=== PATIENT | male | born 1970 | race Caucasian/White ===

== ENCOUNTER 2016-10-03 01:35 | Emergency (ER) | payer OTHER ==
[~2016-10-03] VITALS: Ht 177.8 cm; Wt 75.0 kg
[~2016-10-03 01:35] MED LIST: HYDR-3498 PO; NAPR-260 PO
[2016-10-03 01:38] VITALS: Ht 177.8 cm; Wt 75.0 kg
[2016-10-03] MEDS ORDERED: CEPH-443 PO (01:57)
[2016-10-03] MEDS ORDERED: BACTDS PO (01:57)
[2016-10-03] MEDS ORDERED: IBUP-1542 PO (01:57)
[2016-10-03] MEDS ORDERED: AZITHROMYCIN 250 MG TAB PO ONE (02:00)
[2016-10-03] MEDS ORDERED: CEFTRIAXONE 1 GM INJ IM ONE (02:00)
[2016-10-03 02:02] LABS: URINE BLOOD (Dip) POC Trace-intact (NEGATIVE)
--- NOTE | 2016-10-03 02:02 | ERD ---
ER Documentation Chief Complaint Date/Time DATE: 10/03/16 TIME: 02:00 Chief Complaint pus leaking from penile area HPI 46-year-old male presents to emergency department for complaints of pUS coming from the penile area. Patient is uncircumcised, noted some pus surrounding the penile area. Patient denies any dysuria. Patient's last sexual intercourse was 2 possible, does not have any new sexual partner. Patient denies any flank pain or abdominal pain. Patient denies any fever or chills. ROS All systems reviewed and are negative except as per history of present illness. Medications Home Meds Active Scripts Ibuprofen* (Motrin*) 600 Mg Tab, 600 MG PO Q6H Y for PAIN AND OR ELEVATED TEMP, #30 TAB Prov:JOSH NOLAN [employer]IC[employer] 10/03/16 Cephalexin* (Keflex*) 500 Mg Capsule, 500 MG PO QID for 10 Days, CAP Prov:JOSH NOLAN [employer] OFFICER 10/03/16 Sulfamethoxazole-Trimethoprim* (Bactrim* DS) 800-160 Mg Tab, 1 TAB PO BID for 10 Days, TAB Prov:JOSH NOLAN [employer] OFFICER 10/03/16 Naproxen* (Naprosyn*) 500 Mg Tablet, 500 MG PO BID Y for PAIN AND/OR INFLAMMATION, #20 TAB Prov:ANA POPE DO 10/30/15 Hydrocodone Bit-Acetaminophen* (Cheney*) 5-325 Mg Tab, 1 TAB PO Q6 Y for PAIN, # 10 TAB Prov:ANA POPE DO 10/30/15 Allergies Allergies: Coded Allergies: No Known Allergy (Unverified , 08/11/11) PMhx/Soc Medical and Surgical Hx: pt denies Medical Hx, pt denies Surgical Hx History of Surgery: No Anesthesia Reaction: No Hx Neurological Disorder: No Hx Respiratory Disorders: No Hx Cardiac Disorders: No Hx Psychiatric Problems: No Hx Miscellaneous Medical Probl: No Hx Alcohol Use: No Hx Substance Use: No Hx Tobacco Use: No FmHx Family History: No coronary disease, No diabetes, No other Physical Exam Vitals Vital Signs Date Time Temp Pulse Resp B/P Pulse Ox O2 Delivery O2 Flow Rate FiO2 10/03/16 01:38 97.7 96 20 125/74 100 Physical Exam GENERAL: The patient is well developed and appropriate for usual state of health, in no apparent distress. CHEST: Clear to auscultation bilaterally. There are no rales, wheezes or rhonchi. HEART: Regular rate and rhythm. No murmurs, clicks, rubs or gallops. No S3 or S4. ABDOMEN: Soft, nontender and nondistended. Good bowel sounds. No rebound or guarding. No gross peritonitis. No gross organomegaly or masses. No Resendez sign or McBurney point tenderness. BACK: No midline or flank tenderness. EXTREMITIES: Equal pulses bilaterally. There is no peripheral clubbing, cyanosis or edema. No focal swelling or erythema. Full range of motion. Grossly neurovascularly intact. NEURO: Alert and oriented. Cranial nerves 2-12 intact. Motor strength in all 4 extremities with 5/5 strength. Sensation grossly intact. Normal speech and gait. SKIN: There is no apparent rash or petechia. The skin is warm and dry. HEMATOLOGIC AND LYMPHATIC: There is no evidence of excessive bruising or lymphedema. No gross cervical, axillary, or inguinal lymphadenopathy. : Noted pus surrounding the foreskin, surrounding the penile area, no pustular discharge coming from the actual penis. No scrotal swelling, no swelling or redness. No scrotal tenderness noted. Results 24 hrs Laboratory Tests Test 10/03/16 02:02 Bedside Urine pH (LAB) 6.0 Bedside Urine Protein (LAB) Trace Bedside Urine Glucose (UA) Negative Bedside Urine Ketones (LAB) Negative Bedside Urine Blood Trace-intact Bedside Urine Nitrite (LAB) Negative Bedside Urine Leukocyte Esterase (L Trace Current Medications Medications (Trade) Dose Ordered Sig/Franc Route PRN Reason Start Time Stop Time Status Last Admin Dose Admin Ceftriaxone Sodium (Rocephin) 1 gm ONCE ONCE IM 10/03/16 02:00 10/03/16 02:01 DC 10/03/16 02:09 Azithromycin (Zithromax) 1,000 mg ONCE ONCE PO 10/03/16 02:00 10/03/16 02:01 DC 10/03/16 02:09 Azithromycin and Rocephin was given here in emergency department for possible treatment if patient has gonorrhea or chlamydia. Pending urine GC and chlamydia results. Procedures/MDM Medical decision making: Patient symptoms suspect is consistent with balanitis. Patient was treated for presumed STD also, tests are still pending at this time. Patient does of pustular discharge coming from surrounding the foreskin area consistent with balanitis, bacterial, possible MRSA. Patient was given prescription for Bactrim, Keflex, ibuprofen, is advised to chew foreskin hygiene , patient is advised to follow up with primary doctor 2-3 days for reevaluation of symptoms. Patient was advised to return to emergency department for new worsening symptoms Departure Diagnosis: Primary Impression: Balanitis Condition: Stable Patient Instructions: Balanitis Referrals: [facility] YOU HAVE RECEIVED A MEDICAL SCREENING EXAM AND THE RESULTS INDICATE THAT YOU DO NOT HAVE A CONDITION THAT REQUIRES URGENT TREATMENT IN THE EMERGENCY DEPARTMENT. FURTHER EVALUATION AND TREATMENT OF YOUR CONDITION CAN WAIT UNTIL YOU ARE SEEN IN YOUR DOCTORS OFFICE WITHIN THE NEXT 1-2 DAYS. IT IS YOUR RESPONSIBILITY TO MAKE AN APPOINTMENT FOR FOLOW-UP CARE. IF YOU HAVE A PRIMARY DOCTOR --you should call your primary doctor and schedule an appointment IF YOU DO NOT HAVE A PRIMARY DOCTOR YOU CAN CALL OUR PHYSICIAN REFERRAL HOTLINE AT IF YOU CAN NOT AFFORD TO SEE A PHYSICIAN YOU CAN CHOSE FROM THE FOLLOWING [facility] [address] [facility]. [facility] [address] [facility] [facility] [address] [facility] [facility] [address] [facility]. [facility] [address] [facility]. [facility]. [address] [facility]. [facility] YOU HAVE RECEIVED A MEDICAL SCREENING EXAM AND THE RESULTS INDICATE THAT YOU DO NOT HAVE A CONDITION THAT REQUIRES URGENT TREATMENT IN THE EMERGENCY DEPARTMENT. FURTHER EVALUATION AND TREATMENT OF YOUR CONDITION CAN WAIT UNTIL YOU ARE SEEN IN YOUR DOCTORS OFFICE WITHIN THE NEXT 1-2 DAYS. IT IS YOUR RESPONSIBILITY TO MAKE AN APPOINTMENT FOR FOLOW-UP CARE. IF YOU HAVE A PRIMARY DOCTOR --you should call your primary doctor and schedule and appointment IF YOU DO NOT HAVE A PRIMARY DOCTOR YOU CAN CALL OUR PHYSICIAN REFERRAL HOTLINE AT . IF YOU CAN NOT AFFORD TO SEE A PHYSICIAN YOU CAN CHOSE FROM THE FOLLOWING [facility]: [facility] [address] [place] [address] [facility] [address] [place] [address] [facility] [address] [place] [address] [facility] () Usted se noguera hecho un examen mdico de control que le indica que no est en kassidy condicin que requiera tratamiento urgente en el Departamento de Emergencia. Un estudio ms profundo y el tratamiento de reece condicin pueden esperar sin ningn riesgo hasta que usted sea atendida/o en el consultorio de reece mdico o kassidy cl guerrero. Es responsabilidad suya arreglar kassidy kay para el seguimiento del ange. MANEJO DE CONDICIONES NO URGENTES EN EL FUTURO 1) Si usted tiene un mdico de atencin primaria: Usted debera llamar a reece mdico de atencin primaria antes de venir al departamento de emergencia. Despus de las horas de consultorio, reece doctor o reece asociado/a est disponible por telfono. El mdico o enfermero de manuel en el servicio telefnico puede asesorarle por sofia medio para atender el problema, o ange contrario se puede programar kassidy kay. 2) Si usted no tiene un mdico de atencin primaria: Llame al mdico o clnica de referencia que aparece abajo dajuan las horas de consultorio para hacer kassidy kay para que le vean. CLINICAS: [facility] [phone] [facility] [phone] [facility] [phone] [facility] [phone] [place] [phone] [facility]. [phone] [place] Oct 03, 2016 02:02
== END 2016-10-03 02:25 | disposition home or self-care (01) ==
LOC: FTE 01:35
DX: N48.1 Balanitis (principal)
CPT/HCPCS: 81003; 87070; 87591; 96372; J0696; Z7502; Z7610